=== PATIENT | male | born 1980 | race Hispanic/Latino ===

== ENCOUNTER 2020-01-30 09:38 | Outpatient (CLI) | payer OTHER ==
--- NOTE | 2020-01-30 14:44 | XRay Report ---
XR spine lumbosacral 2-3V INDICATION / CLINICAL INFORMATION: BACK PAIN. COMPARISON: None FINDINGS: BONES/JOINT(S): There is mild retrolisthesis of L5 on S1. Lumbar spinal alignment is otherwise preser brian. Vertebral body heights are intact. There is no evidence of fracture. Moderate disc space height loss at L5-S1, mild at other levels. Moderate lower lumbar facet arthropathy is also present. SI join ts are intact. PARASPINAL SOFT TISSUES:No significant abnormality. ADDITIONAL FINDINGS: None. IMPRESSION: Lower lumbar spondylosis, as detailed, without acute osseous findings Signer Name: Agustin Zavaleta MD Signed: 01/30/2020 2:39 PM Workstation Name: [id number]
== END 2020-01-30 09:39 | disposition home or self-care (01) ==
LOC: XRAY 09:38
PROVIDERS: ATTEND Internal Medicine
DX: M47.816 Spondylosis without myelopathy or radiculopathy, lumbar region (principal); M43.17 Spondylolisthesis, lumbosacral region
CPT/HCPCS: 72100